=== PATIENT | male | born 1965 | race Caucasian/White ===

== ENCOUNTER 2017-04-23 06:25 | Day surgery (SDC) | payer BC ==
[~2017-04-23 06:25] MED LIST: ALBU8I INH; ZOFR4TAB3 SL
[2017-04-23] MEDS ORDERED: IOHEXOL 350 MG/ML 50 ML BTL (for Cath Lab) OTHER ONE (06:26)
[2017-04-23 07:00] VITALS: BP 153/91; PULSE 85; RESP 16; TEMP 98.2; O2SAT 95
[2017-04-23] MEDS ORDERED: NS 1000P @30 MLS/HR (KVO) IV SCH ×2 (07:00→09:15)
[2017-04-23] MEDS ORDERED: ASPIRIN 81 MG CHEW TAB PO SCH (07:00)
[2017-04-23] MEDS ORDERED: LEXA5TAB PO (07:05)
[2017-04-23] MEDS ORDERED: VENTAER INH (07:05)
[2017-04-23] MEDS ORDERED: STATIN MEDICATION (07:05)
[2017-04-23] MEDS ORDERED: FLUT1INH7 INH (07:05)
[2017-04-23 07:15] LABS: AUTOMATED NEUTROPHIL # 4.9 TH/MM3 (1.8-7.7); BASOPHIL % 0.4 % (0.0-2.0); EOSINOPHIL # 0.3 TH/MM3 (0-0.4); EOSINOPHIL % 3.9 % (0.0-4.0); HEMATOCRIT 41.1 % (39.0-51.0); HEMOGLOBIN 14.4 GM/DL (13.0-17.0); LYMPH % 22.7 % (9.0-44.0); LYMPHOCYTE # 1.9 TH/MM3 (1.0-4.8); MEAN CELL VOLUME 89.6 FL (80.0-100.0); MEAN CORPUSCULAR HEMOGLOBIN 31.3 PG (27.0-34.0); MEAN PLATELET VOLUME 7.5 FL (7.0-11.0); MONO % 12.6 % (0.0-8.0); NEUT % 60.4 % (16.0-70.0); PLATELET COUNT 249 TH/MM3 (150-450); RED BLOOD COUNT 4.59 MIL/MM3 (4.50-5.90); RED CELL DISTRIBUTION WIDTH 13.8 % (11.6-17.2); WHITE BLOOD COUNT 8.2 TH/MM3 (4.0-11.0)
[2017-04-23 07:24] LABS: PROTHROMBIN TIME - PATIENT 10.5 SEC (9.8-11.6)
[2017-04-23] MEDS ORDERED: HEPARIN SODIUM - IV 10,000 UNITS/10 ML VIAL ONE (08:09)
[2017-04-23] MEDS ORDERED: HEPARIN-NS/PF FLUSH BAG 2,000 ML IV FLUSH ONE (08:09)
[2017-04-23 08:27] LABS: BICARBONATE 24.5 MEQ/L (21.0-32.0); CALCIUM 8.5 MG/DL (8.5-10.1); CREATININE 0.9 MG/DL (0.60-1.30)
[2017-04-23] MEDS ORDERED: MIDAZOLAM HCL 2 MG/2 ML VIAL ONE (08:29)
--- NOTE | 2017-04-23 09:00 | CATHPROC ---
[facility] HIS Report Study Information Study Number Admission Scheduled Start Study Start [id number] Apr 23 2017 6:25AM 04/23/2017 Apr 23 2017 7:45AM [place] Service Cardiac Catheterization Admit Source Facility Department Other [facility] - [employer] Art Teacher Physician and Clinical Staff Initial [facility] [employer] [employer] Drilling Machine Operator Fely Hickman,ELVIA Other Veronica Barksdale RCIS TECH2 Recorder Tremaine GAN, Andrey Hutchins RCIS(BS) X-Ray Fredy Reid,RT(R) Procedures Performed Procedure Location (Site) Vessel Name Coronary Angiograms LCA Left Coronary Coronary Angiograms RCA Right Coronary LV Gram-hand inj. LV LV Ventricle Equipment Time Radiological Health Specialist Description Size Mfg Part Number Used/Scraped CATHETER, FR5 [place]AN [place] 07:54 POST GONSALES FR 5 [id number] *[id number] Used MONITOR TRANSDUCER, TRUWAVE [id number] 07:54 POST GONSALES * Used W/STOCKCOCK *[id number] 538-420 *[id number] 538-421 *[id number] 07:54 MEDLINE INDUSTRIES PACK, CCL CUSTOM * Used *[id number] 07:54 3LM PACER PEN, SKIN DUAL W/ RULER * Used *[id number] 07:54 Cipher Surgical WIRE, 3MMJ .035 180CM 180CM Used *[id number] 07:54 NAMIC MANIFOLD, 4 PORT * Used *[id number] 07:54 NYCOMED OMNIPAQUE, 350 MG, 150ML 150ML [id number] Used [id number] 07:54 CLEMENT MEDICAL BLANKET,WARM AIR CCL * Used *[id number] 07:54 TERUMO MEDICAL SHEATH, FR4 TERUMO (10CM) FR 4 Used *[id number] 08:14 TERUMO MEDICAL SHEATH, FR6 TERUMO (10CM) FR 6 Used *[id number] History: Allergies Allergy Reaction No Known Allergies History: Risk Factors Hypertension Yes History: Other Current Smoker Method No Cigarettes Labs Hgb (g/dl) Hct (%) WBC (l/cumm) Platelets (thousands) 11.60-17.00 35.00-51.00 4.00-11.00 150.00-450.00 14.4 41.1 8.2 249 Glucose (mg/dl) BUN (mg/dl) Creatinine (mg/dl) BUN:Creatinine (1:x) 74.00-106.00 7.00-18.00 0.50-1.30 10.00-20.00 93 18 0.9 20 Na (meq/l) K (meq/l) 136.00-145.00 3.50-5.10 141 3.7 INR (PTT:PT) 0.90-1.10 1 CPK-MB (ng/ML) 0.50-3.60 Not Drawn Medication Medication Total Dose (Bolus/Oral) Medication Total Dosage/Unit 1% XYLOCAINE 20 mL VERSED 2 mg Medications (Bolus/Oral) Medication Time Given Dosage/Unit Administered By Reason VERSED 04/23/2017 8:30:12 AM 2 mg Fely Hickman For sedation 2 mg VERSED given in lab by Fely Hickman, ELVIA via Peripheral IV. Ordered by Sanford Ramesh. Reaso n: For sedation. 1% XYLOCAINE 04/23/2017 8:37:08 AM 20 mL Fely Hickman 20 mL 1% XYLOCAINE given in lab by Fely Hickman, ELVIA in Right Groin via Subcutaneous. Ordered by Sanford Willett. Medication (Drip) Medication Time Given Dosage/Unit Concentration/Unit Diluent (ml) Solution IV Solutions 04/23/2017 8:15:18 AM 0 mL (IV) 500 NaCl .9 Patient arrived on IV Solutions in Left Hand via Peripheral IV. Pump/Drip Flow = 20 ml/hr using NaCl .9. Initial Case Assessment Cardiovascular HR Rhythm NIBP Chest Pain 83 sr 157/96 0 Circulatory - Right Pulses Dorsalis Pedis Femoral 2 1 Scale (0,1,2,3,4,d) Circulatory - Left Pulses Dorsalis Pedis Femoral 2 1 Scale (0,1,2,3,4,d) Neurological State Oriented to time-place- Alert Moves all extremities person Respiration - General Respiration Rate SpO2 (%) (B/min) 19 98 Final Case Assessment Cardiovascular HR Rhythm NIBP Chest Pain 97 sr 135/92 0 Edema Present Skin color Skin None Normal Warm Dry Circulatory - Right Pulses Dorsalis Pedis Femoral 2 1 Scale (0,1,2,3,4,d) Circulatory - Left Pulses Dorsalis Pedis Femoral 2 1 Scale (0,1,2,3,4,d) Neurological State Oriented to time-place- Alert Moves all extremities person Respiration - General Respiration Rate SpO2 (%) O2 (lpm) (B/min) 18 98 0 Chronological Log Time Study Chronological Log 8:11:44 Patient arrived via Bed. 8:11:45 Patient Name, D.O.B, / Armband Verified By R.N. 8:11:47 Consent signed by the physician and the patient and verified by the [employer] Art [employer] staff. 8:11:49 Pre-op and post- op instructions given; patient acknowledges understanding of instructions. 8:11:52 Verbal Stimulation=2 Physical Stimulation=2 Airway=2 Respiration=2 TOTAL=8. (0=absent, 1=lara ited, 2=present) 8:14:47 Presedation assessment performed by [employer] Art Teacher RN. 8:14:52 Patient has been NPO for More than 6Hrs. 8:14:59 Skin Breakdown- 8:15:01 [place]ard Prominences Protected 8:15:05 A # 20 IV was noted in the Hand (left). Grade = patent 8:15:18 Patient arrived on IV Solutions in Left Hand via Peripheral IV. Pump/Drip Flow = 20 ml/hr us ing NaCl .9. 8:15:38 History and physical on the chart or being dictated. Vitals capture started with the following parameters, Patient=Adult, Interval=5 min, Initial Pre cwirz=594 mmHg, 8:15:51 Deflation Rate=5 mmHg, Cuff placed on Left Arm 8:16:51 BNKU=237/96 mmhg, SpO2=98.0 %, Resp=9 B/min 8:18:41 Reference ECG taken Assessment: Initial Case, HR=83 BPM, Rhythm=sr, RQHR=228/96 mmhg, Chest Pain=0 Right Pulses: Tay Ped=2, Femoral=1 8:18:47 Left Pulses: Tay Ped=2, Femoral=1 Neurological: State=Alert, Ox3, COYNE Respiration: Resp=19 B/min, SpO2=98 % 8:19:25 Bilateral groins prepped with 2% chlorhexidine, and draped after a 3 minute waiting time. 8:21:30 HR=78 bpm, KTXI=329/104 mmhg, SpO2=99.0 %, Resp=13 B/min, Vick=10, Newton=2 8:24:22 paged 8:25:58 Pressure channel 1 zeroed. 8:26:33 HR=88 bpm, EOOW=764/94 mmhg, SpO2=97.0 %, Resp=16 B/min, Newton=2 8:27:09 MD responded 8:29:02 MD arrived. 2 mg VERSED given in lab by Fely Hickman, RN via Peripheral IV. Ordered by Sanford Ramesh. Reason: For 8:30:12 sedation. 8:31:30 HR=76 bpm, SIQS=617/95 mmhg, SpO2=97.0 %, Resp=16 B/min, Newton=2 8:36:29 HR=86 bpm, QDTX=399/92 mmhg, SpO2=96.0 %, Resp=18 B/min, Newton=2 Time Out. Correct patient, correct procedure, correct physician, power injector loaded, or not l oaded with contrast with 8:37:01 surgical team present. Time Out Concurred by and individual staff in procedure. 8:37:05 Case Start 20 mL 1% XYLOCAINE given in lab by Fely Hickman, RN in Right Groin via Subcutaneous. Ordered by Gadiel, 8:37:08 Sanford. 8:38:53 Access site was Right Femoral Artery. 8:39:04 A SHEATH, FR4 TERUMO (10CM) FR 4 was advanced into the Fem Art (right) using the Percutaneou s technique. 8:39:58 Access site was Right Femoral Vein. 8:40:15 A SHEATH, FR6 TERUMO (10CM) FR 6 was advanced into the Fem Vein (right) using the Percutaneo us technique. 8:41:00 A CATHETER, FR5 SWAN [place] MONITOR FR 5 was inserted via Fem Vein (right) 8:41:28 HR=85 bpm, TDEI=495/96 mmhg, SpO2=97.0 %, Resp=21 B/min, Newton=2 Recorded Pressure: PCW, HR=84, Condition=Condition 1 8:42:22 (Pulmonary Capillary Wedge) PCW 20/13/10 Recorded Pressure: MPA, HR=86, Condition=Condition 1 8:43:00 (Main Pulmonary Artery) MPA 30/15/24 Recorded Pressure: RV, HR=83, Condition=Condition 1 8:43:55 (Right Ventricle) RV 34/11/15 Recorded Pressure: RA, HR=88, Condition=Condition 1 8:44:08 (Right Atrium) RA 13 8:44:39 SATS Drawn 8:44:54 [place] Catheter Removed A JR 4.0 INFINITI CATHETER FR 4 was advanced over a wire. OMNIPAQUE, 350 MG, 150ML 150ML was use d for 8:45:00 injections. 8:45:51 Saturation: Site=Ao (Aorta) , O2=97.8 %, Hgb=14.4 gm/dl, Condition=Condition 1. Used in calc ulation. 8:46:03 Saturation: Site=PA (Pulmonary Artery) , O2=77.8 %, Hgb=14.4 gm/dl, Condition=Condition 1. U sed in calculation. 8:46:18 Saturation: Site=RA (Right Atrium) , O2=77.9 %, Hgb=14.4 gm/dl, Condition=Condition 1. Used in calculation. Recorded Pressure: LV, HR=82, Condition=Condition 1 8:46:25 (Left Ventricle) LV 128/8/20 8:46:27 HR=82 bpm, PHSR=027/83 mmhg, SpO2=97.0 %, Resp=20 B/min, Newton=2 Recorded Pressure: LV, Ao, HR=87, Condition=Condition 1 8:46:44 (Left Ventricle) LV 109/6/8, (Aorta) Ao 135/81/107 8:47:00 The LV was manually injected with 10 cc's and visualized. OMNIPAQUE, 350 MG, 150ML 150ML use d. 8:47:05 The RCA was injected and visualized at various angles. OMNIPAQUE, 350 MG, 150ML 150ML used. Recorded Pressure: Ao, HR=81, Condition=Condition 1 8:47:11 (Aorta) Ao 126/82/101 After removing the current catheter a JL 4.0 INFINITI CATHETER FR 4 was advanced over a WIRE, 3M MJ .035 180CM 8:47:52 180CM. 8:48:48 The LCA was injected and visualized at various angles. OMNIPAQUE, 350 MG, 150ML 150ML used. 8:49:31 Catheter was removed 8:49:43 Case End 8:51:26 HR=89 bpm, WUWL=950/92 mmhg, SpO2=97.0 %, Resp=17 B/min Assessment: Final Case, HR=97 BPM, Rhythm=sr, MPYN=813/92 mmhg, Chest Pain=0, Edema=None, Color= Normal, Skin = Warm, Dry Right Pulses: Tay Ped=2, Femoral=1 8:55:02 Left Pulses: Tay Ped=2, Femoral=1 Neurological: State=Alert, Ox3, COYNE Respiration: Resp=18 B/min, SpO2=98 %, O2=0 lpm 8:55:40 Catheter(s) removed without difficulty 8:55:53 Sheath(s) left in place, will be removed in Holding Area 8:55:55 Sterile dressing applied to site 8:55:57 No case complications noted. 8:55:59 Cine recording checked. 8:56:04 Bedside Report will be given. 8:56:10 Vitals capture stopped. 8:56:21 A Left and Right Heart Cath was performed. 8:57:16 Patient moved to [facility] End Study - Contrast Media Used In Study Contrast Total Opened (mL) Total Used (mL) Total Wasted (mL) Omnipaque 25 25 0 End Study - Maximum Contrast Load Max Contrast Load (mL) 560.6 End Study - Radiation Exposure Fluoro Time (minutes) 1.7 End Study - Patient Disposition Complications Transferred To Telemetry Bed
[2017-04-23] MEDS ORDERED: SODIUM CHLORIDE 0.9% FLUSH 10 ML FLUSH IV FLUSH PRN (09:15)
[2017-04-23] MEDS ORDERED: MISC INFORMATION XX ONE (09:15)
[2017-04-23] MEDS ORDERED: BACITRACIN OINT 0.9 GM PKT TOP ONE (09:15)
--- NOTE | 2017-04-23 14:11 | MR ---
cc: Sanford Ramesh MD 04/23/2017 Right heart catheterization, left heart catheterization, left ventriculography, coronary angiography. INDICATION: Severe fatigue, dyspnea on exertion. Moderate size fixed defect in the posterior wall, anterior wall, inferior wall, septum. EF 60%. CHF, anginal equivalent, unstable angina. [place] Cardiovascular Society class 3 angina. [place] Heart Association class 3 congestive heart failure. Coronary artery disease. The patient was brought to the cardiac catheterization laboratory, prepped and draped in usual sterile fashion; 10 mL 1% lidocaine was used to locally anesthetize right common femoral artery. A 4 Emirati sheath was placed in the right common femoral artery. A 6 Emir[place] sheath placed in the right common femoral vein. Right heart catheterization was performed first with the following findings; pulmonary capillary wedge pressure was 20/13-10, PA pressure 30/15-24, RV pressure 34/11-15, RA pressure 13/10-7. The cardiac output by Scar is 6.8 L/minute, cardiac index 3.2 L/m2 per minute. SVR 1171 dynes. On room air, the femoral artery sat 97.8%, PA sat 77.8%, RA sat 77.9%. Left heart catheterization was then performed with a 4 Emirati JL4 catheter with the following findings; LV pressure is , EF 60%. Right coronary artery is dominant. There is a mid 50% stenosis that is best appreciated in the [place] view. It is not as apparent in the AP cranial and CANALES view. Left main coronary artery has no significant disease angiographically. Left circumflex vessel has no significant disease angiographically. There is a medium size obtuse marginal vessel coming off the mid AV groove, left circ, which has a bifurcation in the prox-mid segment, has mild diffuse disease at the bifurcation up to 20% angiographically. LAD is transapical. There is mild disease in the prox-mid segment up to 10% to 20% angiographically. First and second diagonal arteries are small vessels, reference vessel diameter of 1 mm in diameter and no significant obstructive disease angiographically. CONCLUSION: 1. Angiographically mild to moderate 3-vessel coronary disease in right-dominant system as detailed above. 2. Normal left ventricular systolic function, ejection fraction of 60%. 3. Upper limits of normal to mildly elevated left ventricular pressures (120/12-18), upper limits of normal to mildly elevated pulmonary artery pressure as detailed above. 4. The patient's symptoms are disproportionate to his right heart catheter and left heart catheter pressure waveform findings, and I do not suspect his right coronary artery is causing his fatigue and ischemia. I have explained to him that he needs to be evaluated for noncardiac etiology to his symptoms of fatigue and dyspnea on exertion. We also need to start him on baby aspirin 81 mg a day, check his fasting lipids . Patient has been instructed to follow up in my office by me personally on April 26. MD CAROL Merrill/ANT , 09:02 AM , 02:09 PM
--- NOTE | 2017-04-23 17:48 | EKG ---
Date Performed: 04/23/2017 Time Performed: 07:05:08 PTAGE: 51 years EKG: Sinus rhythm Normal ECG NO PREVIOUS TRACING DOCTOR: Marline Samano Interpretating Date/Time 04/23/2017 17:45:58
[2017-04-23] MEDS ORDERED: SODIUM CHLORIDE 0.9% FLUSH 10 ML FLUSH IV FLUSH SCH (21:00)
== END 2017-04-23 12:22 | disposition home or self-care (01) ==
LOC: HDOC 06:25 → HDIC 06:26 → HDOC 12:22
PROVIDERS: ATTEND Internal Medicine Interventional Cardiology
DX: I25.110 Atherosclerotic heart disease of native coronary artery with unstable angina pectoris (principal); R53.83 Other fatigue; I50.9 Heart failure, unspecified
CPT/HCPCS: 80048; 82810; 85025; 85610; 85730; 93005; 93460; 99152; 99153; C1769; C1893; J1644; J2250; Q9967